=== PATIENT | female | born 1935 | race Caucasian/White ===

== ENCOUNTER 2020-06-25 11:31 | Inpatient (IN) | payer OTHER, MEDICARE ==
[~2020-06-25] VITALS: Ht 165.1 cm; Wt 80.8 kg
[~2020-06-25 11:31] MED LIST: ACTOS 45 MG45 M1 PO; ALBUTEROL INHAL17 GM IH; ALTACE10 M1 PO; AMARYL2 MG PO; BACTRIM DS TAB1 EACH PO; LIPITOR20 MG PO; MELOXICAM7.5 MG PO; MUPIROCIN22 GM; OXYBUTYNIN 5 MG5 M1 PO; SIMVASTATIN40 MG PO; ZOLOFT25 MG PO
[2020-06-25] MEDS ORDERED: ASA81BEC PO (15:35)
[2020-06-25] MEDS ORDERED: ACETAMINOPHEN650 M5 PO (15:35)
[2020-06-25] MEDS ORDERED: FAST RELIEF LAX10 MG RECTAL (15:36)
[2020-06-25] MEDS ORDERED: BUSPIRONE HCL10 MG PO (15:36)
[2020-06-25] MEDS ORDERED: CHILDREN'S ZYRT10 M1 PO (15:37)
[2020-06-25] MEDS ORDERED: CULTURELLE1 EAC1 PO (15:37)
[2020-06-25] MEDS ORDERED: DEPAKOTE SPRIN125 MG PO (15:39)
[2020-06-25] MEDS ORDERED: B-12 COMPL1000 MCG/1 INJECTION (15:39)
[2020-06-25] MEDS ORDERED: DONEPEZIL HCL5 M1 PO (15:42)
[2020-06-25] MEDS ORDERED: NORCO 10-325 T1 EACH PO ×2 (15:43)
[2020-06-25] MEDS ORDERED: LEVO-T75 MCG PO (15:44)
[2020-06-25] MEDS ORDERED: LOPERAMIDE2 MG PO (15:44)
[2020-06-25] MEDS ORDERED: LORAZEPAM 0.50.5 MG PO (15:45)
[2020-06-25] MEDS ORDERED: SENNA PLUS TAB1 EACH PO (15:49)
[2020-06-25] MEDS ORDERED: MILK OF MA2400 MG/11 PO (15:49)
[2020-06-25] MEDS ORDERED: OLANZAPINE2.5 MG PO (15:49)
[2020-06-25] MEDS ORDERED: ZOLOFT50 M1 PO (15:50)
[2020-06-25] MEDS ORDERED: IMITREX 25 MG T25 M1 PO (15:51)
[2020-06-25 22:47] VITALS: BP 165/76
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
--- NOTE | 2020-06-26 03:01 | NUR ---
PATIENT HAS BEEN UP PACING THE HALLS. SHE IS IRRITABLE AND AGITATED. UNDIRECTABLE. PATIENT YELLING AT STAFF FROM [facility]. ENTERING PATIENT ROOMS. TRYING TO OPEN CLOSED DOORS. CALLING STAFF NAMES AND BELITTLING OTHERS. DR BANG NOTIFIED. ORDERS GIVEN FOR HALDOL 5MG PO OR IM ONE TIME. PATIENT REFUSED PO. VERY BELLIGERANT. FLIGHT OF IDEAS. HATEFUL. SECURITY CALLED AND HALDOL 5MG IM GIVEN IN LEFT DELTOID. PATIENT UP AND PACING. ANGRY THAT ROOM DOORS ARE SHUT AND LOCKED. PATIENT THREW HER KLEENEX BOX DOWN THE HALLWAY AND YELLING. PATIENT TOOK AND THREW HER SHOES AT STAFF MEMBER IN ANOTHER ROOM. SHOES PLACED IN LOCKER. CONTINUING TO MONITOR.
[2020-06-26 09:13] VITALS: BP 119/68
--- NOTE | 2020-06-26 12:49 | NUR ---
ASSUMED CARE AT 0700 THIS MORNING. PT. LYING IN BED, AWAKE. SHE CAME ONTO THE UNIT FOR MEALS. SHE IS NOT EATING WELL (ABOUT 25 TO 35%). SHE WENT TO HER ROOM AND LAYED DOWN BETWEEN MEALS, NOT ATTENDING RT GROUP. SHE SITS QUIETLY WITHOUT TALKING MUCH OF THE TIME. SHE DOES NOT ALWAYS ANSWER QUESTIONS WHEN ASKED OF HER. SHE DID TAKE HER MORNING MEDICATIONS WITHOUT PROBLEMS WITH SOME ENCOURAGEMENT. HER MOOD IS NEUTRAL WITH BLAND MOOD.
[2020-06-26 19:55] VITALS: BP 140/81
--- NOTE | 2020-06-27 00:18 | NUR ---
PATIENT WAS OUT IN THE DINING ROOM ALL EVENING. SHE HAS BEEN CALM AND PLEASANT. SHE REMAINS A/0X1. SHE WAS LOOKING FOR 2 OF HER CHILDREN TONIGHT. SHE HAS DISORGANIZED THINKING AND HER CONVERSATIONS ARE PRESENTED THIS WAY TOO. PATIENT TOOK HER HS MEDS WHOLE WITH WATER AND SOME WERE PLACED IN ICECREAM BECAUSE SHE WAS TAKING SO MANY AND GOT TIRED OF SWALLOWING THEM. PATIENT WALKS WITH A STEADY GAIT. SHE DENIES PAIN, SI/HI. PATIENT HAS BEEN COOPERATIVE AND EASILY REDIRECTED. PATIENT SLEEPING AT THIS TIME. BED IN LOW POSITION. ROUTINE ROUNDS TO ASSESS SAFETY AND STATUS OF PATIENT.
[2020-06-27 08:49] VITALS: BP 120/35
[2020-06-27 10:30] LABS: CALCIUM 9.1 mg/dL (8.5-10.1); CREATININE 1.3 mg/dL (0.6-1.0); POTASSIUM 3.9 mmol/L (3.5-5.1)
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
[2020-06-27 19:24] VITALS: BP 139/70
[2020-06-28 01:06] LABS: GLYCOHEMOGLOBIN (HGB A1C) 7.1 % (4.8-5.6)
--- NOTE | 2020-06-28 03:51 | NUR ---
Assumed care of patient this pm shift. Patient is irritable and confused. Denies pain. Denies hi/si. Exit seeking. Takes medications crushed in pudding. Ambulates without assistance. Redirectable. Assessment shows no signs of acute distress. Alert and oriented to self. Continent of bowel and bladder. We will continue to monitor per hospital policy.
[2020-06-28 07:24] VITALS: BP 109/56
--- NOTE | 2020-06-28 16:16 | NUR ---
Faxed updated to [facility]
[2020-06-28 19:16] VITALS: BP 130/65
--- NOTE | 2020-06-28 19:52 | NUR ---
Assumed patient care at 0700. patient was sitting in the day room. upon assessment patient was calm and co-operative. Patient was alert and oriented to self. Patient took her medication crushed. she ate all meals. patient denies SI/HI. patient vital signs were stable. will continue to monitor patient
--- NOTE | 2020-06-29 05:00 | NUR ---
Assumed care of pt @ 1900. Pt calm et cooperative this shift. Took medications crushed in pudding without difficulty. Ambulates with assistance of gerichair. VSWNL. Health assessment with no abnormalities noted at present time. Denies SI/HI/AVH at present time. Socialized with peers in dayroom until HS. Currently resting in gerichair in dayroom with eyes open. Pt has not slept tonight. Will continue to monitor per unit protocol.
[2020-06-29 07:35] LABS: HEMATOCRIT 39.4 % (37.0-47.0); HEMOGLOBIN 12.8 gm/dL (12.0-15.0); MCH 31.3 pg (26.0-34.0); MCHC 32.4 g/dL (28.0-37.0); MCV 96.5 fL (80.0-100.0); RBC 4.08 mil/uL (4.20-5.00); RDW 14.1 % (10.5-14.5); WBC 8.1 thou/uL (4.0-11.0)
[2020-06-29 07:52] LABS: ALBUMIN 3.4 g/dL (3.4-5.0); CALCIUM 9.4 mg/dL (8.5-10.1); CREATININE 1.1 mg/dL (0.6-1.0); POTASSIUM 3.8 mmol/L (3.5-5.1); TOTAL BILIRUBIN 0.4 mg/dL (0.2-1.0); TOTAL PROTEIN 7.5 g/dL (6.4-8.2)
[2020-06-29 09:21] VITALS: BP 125/56
--- NOTE | 2020-06-29 12:10 | NUR ---
Alert to name only. Appropriate speech. Denies SI/HI. No speech/behavior suggestive of SI/HI. Breath sounds clear. Reg HR auscultated. Color pink with brisk capillary refill and palpable peripheral pulses. Brief dry. Active bowel sounds over soft, rounded abdomen. Able to stand briefly and then sat down. Sitting in gerichair all morning in dining room, sleeping at times. Lap corazon fastened in front. Currently eating lunch independently without s/o distress.
--- NOTE | 2020-06-29 14:38 | NUR ---
SW contacted [facility] and Spoke with GIL Mora. DANIEL gave update on the Pt and scheduled d/c for 07/02/20 @ 1000am. [facility].
[2020-06-29 19:23] VITALS: BP 126/63
[2020-06-29 20:40] VITALS: BP 126/63
--- NOTE | 2020-06-30 05:41 | NUR ---
Assumed care for pt @ 1900. Pt in dining room sitting in gerichair most of shift. Pt is A&O x 1 to self. Pleasantly confused. Denies pain. Deneis SI/HI. Takes medications crushed in applesauce w/ thin liquids. Slept in gerichair 11 hours. No s/s of acute distress noted. Incontient of bowel/bladder x 1. Pericare completed and assisted with toileting. Will continue to monitor for any changes and for safety per hospital protocol.
[2020-06-30 08:13] VITALS: BP 141/58
[2020-06-30 09:10] VITALS: BP 141/58
--- NOTE | 2020-06-30 10:30 | NUR ---
1030 RESUMMED CARE FROM OVERNIGHT SHIFT THIS AM, PATIENT INDAY ROOM IN EFRAIN CHAIR QUIET. PATIENT IS NOT ABLE TO TELL ME ABOUT SI/HI/AH/VH AT PRESENT DUE TO COGNITVE DISORDER. PATIENT ABDOMEN SOFT ROUND BOWEL SOUNDS PRESENT LUNGS CLEAR. PATIENT IS ORIENTED TO SELF ONLY PATIENT IS NON VERBAL CALM COOPERATIVE. WILL CONTINUE TO MONITOR PATIENT FOR SAFETY AND BEHAVIORS.
[2020-06-30 19:35] VITALS: BP 143/68
--- NOTE | 2020-07-01 05:15 | NUR ---
Assumed care of pt @ 1900. Pt calm et cooperative this shift. Took medications crushed in pudding without difficulty. Ambulates with assistance of gerichair. VSWNL. Health assessment with no abnormalities noted at present time. Unable to assess SI/HI/AVH due to cognitive deficit but pt does not demonstrate any signs or symptoms of acute emotional distress at present time. Socialized with peers in dayroom until HS. Currently resting in gerichair in dayroom with eyes closed. will continue to monitor per unit protocol.
[2020-07-01 07:00] VITALS: BP 117/65
[2020-07-01 09:17] VITALS: BP 117/65
--- NOTE | 2020-07-01 10:43 | NUR ---
1035 RESUMMED CARE FROM OVERNIGHT SHIFT THIS AM, PATIENT IN DAYROOM IN EFRAIN CHAIR QUIET. PATIENT DID NOT SLEEP BUT 1 HOUR LAST NIGHT PATIENT CALM CONFUSED ORIENTED TO SELF ONLY. PATIENTS ABDOMEN SOFT ROUND BOWEL SOUNDS PRESENT LUNGS CLEAR. PATIENT UNABLE TO TELL ME ABOUT SI/HI/AH/VH DUE TO COGNITIVE DO WILL CONTINUE TO MONITOR PATIENT FOR SAFETY AND BEHAVIORS.
--- NOTE | 2020-07-01 14:53 | NUR ---
SW faxed updates to [facility]. SW team will continue to monitor.
[2020-07-01 19:20] VITALS: BP 102/68
--- NOTE | 2020-07-02 02:29 | NUR ---
PATIENT SAT UP IN EFRAIN CHAIR IN DINING ROOM THIS EVENING WITH LAP MAMADOU COMFORTABLY SECURED AND FASTENED IN FRONT SIDE. PATIENT IS A/0X1. SHE HAS BEEN CALM AND COOPERATIVE. SHE HAS DISORGANIZED CONVERSATIONS. SHE DID TAKE HER MEDS CRUSHED IN PUDDING AND FED HERSELF ICECREAM FOR HS SNACK. PATIENT NOT STANDING WELL SHE DID WHEN SHE FIRST CAME. PATIENT WAS ASSISTED TO BED WITH ASSIST X 2. PATIENT DENIES PAIN. NO SIGNS OF SI/HI NOTED. PATIENT IS PLEASANTLY CONFUSED. SHE DOES LOOK FOR HER CHILDREN AND ASK ABOUT HER AT TIMES. VSS. INCONTINENCE CARES DONE PRN THRU NIGHT. PATIENT RESTING IN BED WITH EYES CLOSED. ROUTINE ROUNDING TO ASSESS SAFETY AND STATUS OF PATIENT. NO BEHAVIORS NOTED. PATIENT TO D/C TO [facility] THIS MORNING AT 10 AM. BED IN LOW POSITION AND BED ALARM ON FOR SAFETY. CONTINUING TO MONITOR.
[2020-07-02 07:52] VITALS: BP 124/55
[2020-07-02] MEDS ORDERED: CEFUROXIME250 MG PO (09:54)
[2020-07-02] MEDS ORDERED: DEPAKOTE SPRIN125 MG PO ×2 (09:55)
[2020-07-02] MEDS ORDERED: OLANZAPINE2.5 MG PO (09:56)
[2020-07-02] MEDS ORDERED: OLANZAPINE ODT5 MG PO (09:56)
[2020-07-02] MEDS ORDERED: PEPCID20 MG PO (09:58)
[2020-07-02] MEDS ORDERED: VITAMIN D21250 MC1 PO (09:59)
--- NOTE | 2020-07-02 10:54 | NUR ---
REPORT CALLED TO SPENCER AT [facility] AT APPROX 0845 THIS AM-DAUGHTER JOYCE EDWARDS CONTACTED VIA PHONE AND DISCHARGE INSTRUCTIONS,MEDICATIONS REVIEWED-DAUGHTER DID HAVE MULTIPLE QUESTIONS STATING SHE WAS NOT AWARE OF DC FOR TODAY. PT DISCHARGED VIA WC ACCOMPNIED BY [employer] STAFF-PERSONAL BELONGINGS SENT WITH PATIENT. UP IN MOOD AT TIME OF DC-SITTING QUIETLY IN WHEELCHAIR DENIES PAIN/DISCOMFORT-ALERT AND ORIENTED TO PERSON/PLACE-STATES "HAPPY TO BE GOING"
== END 2020-07-02 11:03 | DRG 884 ==
LOC: SBH
PROVIDERS: Hospitalist; ADMIT Psychiatry & Neurology Psychiatry; ATTEND Psychiatry & Neurology Psychiatry
DX: F01.51 Vascular dementia, unspecified severity, with behavioral disturbance (principal); N39.0 Urinary tract infection, site not specified; F41.9 Anxiety disorder, unspecified; F43.10 Post-traumatic stress disorder, unspecified; E11.9 Type 2 diabetes mellitus without complications; E03.9 Hypothyroidism, unspecified; K21.9 Gastro-esophageal reflux disease without esophagitis; I10 Essential (primary) hypertension; F31.9 Bipolar disorder, unspecified; Z86.16 Personal history of COVID-19; Z66 Do not resuscitate; Z88.8 Allergy status to other drugs, medicaments and biological substances
CPT/HCPCS: 10880

== ENCOUNTER 2020-06-25 14:37 | Emergency (ER) | payer OTHER, MEDICARE ==
[~2020-06-25] VITALS: Ht 167.6 cm; Wt 79.4 kg
[2020-06-25 15:28] LABS: ABSOLUTE NEUTROPHILS 4.1 thou/uL (1.4-8.2); BASOPHILS 0.4 % (0.0-2.0); EOSINOPHILS 2.7 % (0.0-3.0); HEMATOCRIT 36.8 % (37.0-47.0); HEMOGLOBIN 12.2 gm/dL (12.0-15.0); LYMPHOCYTES 23.7 % (24.0-44.0); MCHC 33.2 g/dL (28.0-37.0); MCV 96.6 fL (80.0-100.0); MONOCYTES 6.1 % (1.0-8.0); PLATELET COUNT 293 thou/uL (150-400); POLYS 67.1 % (36.0-66.0); RBC 3.81 mil/uL (4.20-5.00); RDW 14.3 % (10.5-14.5); WBC 6.1 thou/uL (4.0-11.0)
[2020-06-25] MEDS ORDERED: ASA81BEC PO (15:35)
[2020-06-25] MEDS ORDERED: ACETAMINOPHEN650 M5 PO (15:35)
[2020-06-25] MEDS ORDERED: BUSPIRONE HCL10 MG PO (15:36)
[2020-06-25] MEDS ORDERED: FAST RELIEF LAX10 MG RECTAL (15:36)
[2020-06-25] MEDS ORDERED: CULTURELLE1 EAC1 PO (15:37)
[2020-06-25] MEDS ORDERED: CHILDREN'S ZYRT10 M1 PO (15:37)
[2020-06-25 15:39] LABS: ANION GAP 9 mmol/L (7-16); BUN 17 mg/dL (7-18); CALCIUM 9.3 mg/dL (8.5-10.1); CHLORIDE 105 mmol/L (98-107); CO2 27 mmol/L (21-32); CREATININE 1.1 mg/dL (0.6-1.0); GLUCOSE 223 mg/dL (74-106); SODIUM 141 mmol/L (136-145)
[2020-06-25] MEDS ORDERED: DEPAKOTE SPRIN125 MG PO (15:39)
[2020-06-25] MEDS ORDERED: B-12 COMPL1000 MCG/1 INJECTION (15:39)
[2020-06-25] MEDS ORDERED: DONEPEZIL HCL5 M1 PO (15:42)
[2020-06-25] MEDS ORDERED: NORCO 10-325 T1 EACH PO ×2 (15:43)
[2020-06-25] MEDS ORDERED: LEVO-T75 MCG PO (15:44)
[2020-06-25] MEDS ORDERED: LOPERAMIDE2 MG PO (15:44)
[2020-06-25] MEDS ORDERED: LORAZEPAM 0.50.5 MG PO (15:45)
[2020-06-25] MEDS ORDERED: SENNA PLUS TAB1 EACH PO (15:49)
[2020-06-25] MEDS ORDERED: MILK OF MA2400 MG/11 PO (15:49)
[2020-06-25] MEDS ORDERED: OLANZAPINE2.5 MG PO (15:49)
[2020-06-25] MEDS ORDERED: ZOLOFT50 M1 PO (15:50)
[2020-06-25 15:51] LABS: DIRECT BILIRUBIN < 0.1 mg/dL (<0.1-0.2); SALICYLATE < 2.8 mg/dL (2.8-20.0); SGOT 15 U/L (15-37); SGPT 15 U/L (14-59); TOTAL BILIRUBIN 0.5 mg/dL (0.2-1.0); TOTAL PROTEIN 6.8 g/dL (6.4-8.2)
[2020-06-25] MEDS ORDERED: IMITREX 25 MG T25 M1 PO (15:51)
[2020-06-25 16:04] LABS: AMP/METHAMP Negative (Negative); BARBITURATES Negative (Negative); BENZODIAZEPINES Negative (Negative); COCAINE Negative (Negative); METHADONE Negative (Negative); OPIATES POSITIVE (Negative); PCP Negative (Negative)
[2020-06-25 17:04] LABS: URINE BILIRUBIN NEGATIVE (Negative); URINE BLOOD TRACE (Negative); URINE CLARITY CLEAR; URINE COLOR YELLOW; URINE GLUCOSE-RANDOM* NEGATIVE (Negative); URINE KETONES NEGATIVE (Negative); URINE PROTEIN (DIPSTICK) NEGATIVE (Negative); URINE SPECIFIC GRAVITY 1.025 (1.005-1.035); URINE UROBILINOGEN 0.2 E.U./dl (0.2-1.0)
[2020-06-25 17:17] LABS: URINE LEUKOCYTES-REFLEX 2+ (Negative); URINE NITRITE-REFLEX POSITIVE (Negative)
[2020-06-25 17:27] LABS: SQUAMOUS 0-3 Few /LPF (0-3); URINE WBC-REFLEX >25 Many /HPF (0-5)
[2020-06-25 17:28] LABS: BACTERIA-REFLEX >30 Many /HPF (None Seen); CASTS None Seen /LPF (None Seen); CRYSTALS None Seen /LPF (None Seen); URINE RBC 0-2 Rare /HPF (0-2)
[2020-06-25 22:07] VITALS: BP 138/97
== END 2020-06-25 22:07 | disposition still patient (30) ==
LOC: ER 14:37
PROVIDERS: Nurse Practitioner
DX: U07.1 COVID-19 (principal); F99 Mental disorder, not otherwise specified; E11.9 Type 2 diabetes mellitus without complications; E78.5 Hyperlipidemia, unspecified; Z79.899 Other long term (current) drug therapy; Z79.82 Long term (current) use of aspirin; Z88.8 Allergy status to other drugs, medicaments and biological substances

== ENCOUNTER 2020-10-08 16:07 | Inpatient (IN) | payer OTHER, MEDICARE ==
[~2020-10-08] VITALS: Ht 165.1 cm; Wt 79.1 kg
[~2020-10-08 16:07] MED LIST changes: +ACETAMINOPHEN650 M5 PO; +ASA81BEC PO; +B-12 COMPL1000 MCG/1 INJECTION; +BUSPIRONE HCL10 MG PO; +CEFUROXIME250 MG PO; +CHILDREN'S ZYRT10 M1 PO; +CULTURELLE1 EAC1 PO; +DEPAKOTE SPRIN125 MG PO; +DONEPEZIL HCL5 M1 PO; +FAST RELIEF LAX10 MG RECTAL; +IMITREX 25 MG T25 M1 PO; +LEVO-T75 MCG PO; +LOPERAMIDE2 MG PO; +LORAZEPAM 0.50.5 MG PO; +MILK OF MA2400 MG/11 PO; +NORCO 10-325 T1 EACH PO; +OLANZAPINE ODT5 MG PO; +OLANZAPINE2.5 MG PO; +PEPCID20 MG PO; +SENNA PLUS TAB1 EACH PO; +VITAMIN D21250 MC1 PO; +ZOLOFT50 M1 PO
[2020-10-08 20:00] VITALS: BP 140/84
--- NOTE | 2020-10-08 23:11 | NUR ---
PATIENT ARRIVED TO [facility] UNIT FROM OUR ED AFTER A NEGATIVE COVID PCR DONE. PT TREATED FOR UTI WITH ROCEPHIN PER REPORT NURSE. PATIENT CAME BY STRETCHER AT 1945 AND WAS ABLE TO STAND AND WALK TO HER BED FROM THE DOOR WAY WITH STANDBY ASSIST. PATIENT ADMITTED FROM [facility] WHERE SHE WAS AGGRESSIVE TOWARDS OTHER RESIDENTS AND WAS DELUSIONAL, YELLING, AND AGITATED FOR LAST 4 DAYS. PATIENT HAS MEDICARE INSURANCE WITH [employer]. PATIENT IS A/0X1. SHE IS IMPULSIVE AND ANXIOUS WHEN SHE FIRST ARRIVED. SHE DID NOT WANT TO SIT FOR VITALS AND WANTED TO PACE THE HALLS AND DINING ROOM. SHE IMMEDIATELY WENT TO A TABLE WHERE OTHER WOMEN WERE PLAYING CARDS AND SHE BEGAN TAKING CARDS AND TRYING TO FOLD THEM AND REMOVE THEM FROM THE TABLE. PT WAS REDIRECTED TO ANOTHER AREA. SHE FINALLY SETTLED IN A SEAT FOR AWHILE. PATIENT'S VITALS WERE 142/117 AND RECHECKED WAS 140/84 MANUALLY. P71,T 97.6, R16, O2%ON RA 100. HOSPITALIST, SAMUEL STOREY NP WAS NOTIFIED BY PHONE. ORDERS WERE OBTAINED AND PUT IN BY DR KONG. PATIENT HAS MED HISTORY OF THE FOLLOWING: CARDIOMEGALY, DM2, HYPOTHYROID,GERD HTN, OA, VASCULAR DEMENTIA. A MENTAL HISTORY OF BIPOLAR,PTSD,AND MDD. PATIENT IS A DNR AND CONSENT FOR TREATMENT RECEIVED BY PATIENT'S DPOA/DTR JOYCE EDWARDS [phone]. SHE STATES TO LEAVE MESSAGE FOR HER IF SHE DOESN'T ANSWER AND SHE WILL CALL BACK WHEN SHE CAN. SHE WORKS LATE AFTERNOONS TO EARLY EVENINGS. PATIENT WOULD NOT SIT STILL FOR COMPLETE ASSESSMENT SO WAS LIMITED. HER LUNGS ARE CTA BILATERALLY, HEART REGULAR, ABDOMEN SOFT,NONTENDER, POSITIVE BS X 4 QUADS. PATIENT APPEARS INCONTINENT AND IS WEARING BRIEFS. NO GLASSES OR HEARING AIDS NOTED. HAS A TOENAIL ON LEFT LITTLE TOE THAT APPEARS TO BE COMING LOSE WITH OLD BLOOD UNDER IT. SOME CAKED ON DIRT ON BOTTOM OF FOOT ALSO. PATIENT HAS A HISTORY OF CHRONIC BACK PAIN AND WAS ON HYDROCODONE FOR MANY YEARS. THIS WAS STOPPED WHEN SHE WENT TO [facility] PER DAUGHTER. PATIENT ALSO HAD BACK SURGERY YEARS AGO. DAUGHTER STATES THAT PATIENT ACTS OUT MORE WHEN HER BACK IS HURTING AND NEED TO ASSESS THIS SO A PRN CAN BE GIVEN FOR PAIN. TYLENOL 650MG PO GIVEN TONIGHT FOR COMFORT WITH HS MEDS. PATIENT IS RECLINING IN EFRAIN CHAIR IN DINING ROOM AND IS QUIET AND RESTING. PATIENT IS NOT A FALL RISK. CHAIR IS LOCKED. CONTINUING TO MONITOR.
[2020-10-09 05:34] LABS: ABSOLUTE NEUTROPHILS 5.4 thou/uL (1.4-8.2); BASOPHILS 0.5 % (0.0-2.0); EOSINOPHILS 2.8 % (0.0-3.0); HEMATOCRIT 36.8 % (37.0-47.0); HEMOGLOBIN 12.2 gm/dL (12.0-15.0); LYMPHOCYTES 28.7 % (24.0-44.0); MCH 32.8 pg (26.0-34.0); MCHC 33.1 g/dL (28.0-37.0); MCV 99.2 fL (80.0-100.0); MONOCYTES 7.6 % (1.0-8.0); PLATELET COUNT 194 thou/uL (150-400); POLYS 60.4 % (36.0-66.0); RBC 3.71 mil/uL (4.20-5.00); RDW 13.7 % (10.5-14.5); WBC 8.9 thou/uL (4.0-11.0)
[2020-10-09 05:53] LABS: CALCIUM 8.7 mg/dL (8.5-10.1); POTASSIUM 3.8 mmol/L (3.5-5.1)
[2020-10-09 08:44] VITALS: BP 135/86
--- NOTE | 2020-10-09 16:29 | NUR ---
0700 ASSUMED CARE OF PATIENT, PATIENT IN EFRAIN CHAIR AT THAT TIME. PATIENT RESTING WITH EYES CLOSED OFF AN ON. PATIENT NOT ANSWERING QUESTIONS FOR ME, PATIENT STARES AND IGNORES PHYSICIAN ASSISTANT SURGERY. PHYSICIAN ASSISTANT SURGERY ASKS PATIENT HOW SHE TAKES MEDICATION AND PATIENT STARES AT PHYSICIAN ASSISTANT SURGERY WITH NO RESPONSE. PHYSICIAN ASSISTANT SURGERY ASKS PATIENT AGAIN AND PATIENT RESPONDS WITH "I AM THINKING HOLD UP". NEVER RECIEVED RESPONSE. MEDICATION GIVEN CRUSHED IN PUDDING. QUIET AND CALM, A& O X1. NO C/O PAIN. WILL CONTINUE TO OBSERVE
[2020-10-09 19:00] VITALS: BP 100/61
--- NOTE | 2020-10-10 00:50 | NUR ---
ASSESSMENT: PT WAS SITTING IN EFRAIN CHAIR, QUIETLY AND WATCHING TELEVISION. DID TAKE MEDS WITHOUT DIFFICULTY. VSS, AFEBRILE. UP WITH SBA TO PIVOT FROM CHAIR TO BED. INCONTINENT. UA PENDING. DENIES PAIN. WILL CONTINUE TO MONITOR.
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
--- NOTE | 2020-10-10 13:33 | NUR ---
PATIENT HAS BEEN UP, AND OUT ON THE UNIT, A&O X1, FORGETFUL, AND VERY CONFUSED. PATIENT IS QUIET, CALM COOPERATIVE WITH CARE. PATIENT TOOK MORNING MEDICATION CRUSHED IN PUDDING. APPETITE IS POOR, EATS LESS THAN 25% MEALS, ENSURE OFFERED FOR SUPPER, SHE ONLY TOOK A FEW SIPS, STARTED SPITTING IT OUT. PATIENT REQUIRES ASSIST OF STAFF TO COMPLETE ADL, INCLUDING FEEDING. PATIENT CHOOSE NOT TO RESPOND TO ASSESSMENT QUESTIONS, MAY BE DUE TO COGNITIVE IMPAITEMENT. AFFECT IS FLAT/BLUNTED, MOOD IS CALM, QUIET. NO AGITATION OR AGGRESSIVE BEHAVIOR NOTED AT THIS TIME, WILL CONTINUE TO ENCOURAGE PO INTAKE, AND MONITOR FOR SAFETY.
--- NOTE | 2020-10-10 18:12 | NUR ---
SW completed treatment plan and psychosocial assessment. SW team will remain available.
[2020-10-10 19:22] VITALS: BP 130/65
[2020-10-11 01:45] LABS: URINE BILIRUBIN NEGATIVE (Negative); URINE BLOOD 1+ (Negative); URINE CLARITY CLOUDY; URINE COLOR YELLOW; URINE GLUCOSE-RANDOM* NEGATIVE (Negative); URINE KETONES 1+ (Negative); URINE NITRITE-REFLEX NEGATIVE (Negative); URINE PROTEIN (DIPSTICK) NEGATIVE (Negative); URINE SPECIFIC GRAVITY 1.025 (1.005-1.035); URINE UROBILINOGEN 0.2 E.U./dl (0.2-1.0)
[2020-10-11 01:48] LABS: URINE LEUKOCYTES-REFLEX 2+ (Negative)
[2020-10-11 02:07] LABS: BACTERIA-REFLEX 1-9 Few /HPF (None Seen); CASTS None Seen /LPF (None Seen); CRYSTALS None Seen /LPF (None Seen); MUCUS >6 Heavy strn/LPF (None Seen); SQUAMOUS 4-10 Moderate /LPF (0-3); URINE RBC >20 Many /HPF (0-2)
--- NOTE | 2020-10-11 02:55 | NUR ---
Alert and orientated to name only. Calm and cooperative, took meds in pudding. Confused speech, minimal verbalizations. No speech/behavior suggestive of SI/HI. Breath sounds clear. Reg HR auscultated. Color pink with brisk capillary refill and palpable peripheral pulses. Incontinent of yellow urine. Straight cath done for yellow cloudy urine, sent for UA and C&S. Active bowel sounds over soft, rounded abdomen. Soft, brown stool per brief. Currently sleeping without s/o distress.
[2020-10-11 09:30] VITALS: BP 132/72
[2020-10-11 12:51] VITALS: BP 132/72
--- NOTE | 2020-10-11 13:18 | NUR ---
Assumed pt care at 0700. pt is oriented to self. Assessments completed,vss. calm and co-operative with care. pt is forgetful. denies si/hi. there is no c/o pain at this time. Ambulates with a steady gait. Took meds crushed with yogurt, no difficulty noted. pt sometimes wanders the unit. At this time pt is in the day room watching TV. Will continue to monitor pt.
--- NOTE | 2020-10-11 13:19 | NUR ---
DANIEL contacted [facility] and spoke to Mercedes who gave the fax number of [phone]. [facility]'s number is [phone]. DANIEL faxed updates. DANIEL team will continue to follow pt during her stay on this unit.
[2020-10-11 20:00] VITALS: BP 131/59
--- NOTE | 2020-10-12 00:09 | NUR ---
Alert and orientated to name only. Some confused speech, other times short, coherent statements. Denies SI/HI. Ambulatory per report with regular steady gait. Compliant with meds, took crushed in pudding. Breath sounds clear. Reg HR auscultated. Color pink with brisk capillary refill and palpable peripheral pulses. Incontinent X 2 large amts yellow urine per brief with small, soft brown stool. Active bowel sounds over soft, rounded abdomen. Excoriated, erythemic area under breasts, more prominent on L. JANENE Echols notified, cleaned and nystatin powder applied per order. Pt. Currently sleeping without s/o distress.
[2020-10-12 09:56] VITALS: BP 124/59
[2020-10-12 15:25] VITALS: BP 124/59
--- NOTE | 2020-10-12 15:35 | NUR ---
Assumed pt care at 0700. pt was alert and oriented to self. ASSESSMENT COMPLETED,VSS. PT TOOK MEDS CRUSHED IN PUDDING. PT AMBULATES. dENIES SI/HI. AT THIS TIME THERE IS NO C/O OF PAIN. PT WAS INCONTINENT ONCE. PT HAD A BOWEL MOVEMENT TWICE. NO SIGN OF ACUTE DISTRESS UP ASSESSMENTS. aT THIS TIME PT IS SLEEPING ON A Christy CHAIR, IN THE DAY ROOM. WILL CONTINUE TO MONITOR PT.
[2020-10-12 19:28] VITALS: BP 144/77
--- NOTE | 2020-10-12 22:44 | NUR ---
Alert to name only, confused speech, talkative this pm. Denies SI/HI, no speech/behavior suggestive of SI/HI. Ambulating t/o unit with regular, steady gait. Breath sounds clear. Reg HR auscultated. Color pink with brisk capillary refill and palpable peripheral pulses. No edema noted. Incontinent of large amt yellow urine per brief. Active bowel sounds over soft, rounded abdomen. Rash under breasts almost resolved, powder appears to be recently applied. Ate container of yogurt and drank 300 cc H2O with assistance. Currently lying quietly in bed without s/o distress.
[2020-10-13 08:21] VITALS: BP 141/71
[2020-10-13 16:44] VITALS: BP 141/71
--- NOTE | 2020-10-13 16:51 | NUR ---
Assumed pt care at 0700. pt was oriented to self. took meds crushed, no difficulty noted. pt ambulates with a steady. calm and co-operative with care. PT IS FORGETFUL. no sign of acute distress noted. No sign of of si/hi. pt slept most apart of the day. pt was straight cath to get a UA sample PER DR ARTUR mendes. UA collected and sent to lab. At this time pt is eating dinner. will continue to monitor.
[2020-10-13 17:43] LABS: URINE BILIRUBIN NEGATIVE (Negative); URINE BLOOD NEGATIVE (Negative); URINE CLARITY CLEAR; URINE COLOR YELLOW; URINE GLUCOSE-RANDOM* NEGATIVE (Negative); URINE KETONES 1+ (Negative); URINE LEUKOCYTES-REFLEX NEGATIVE (Negative); URINE NITRITE-REFLEX NEGATIVE (Negative); URINE PROTEIN (DIPSTICK) NEGATIVE (Negative); URINE SPECIFIC GRAVITY 1.025 (1.005-1.035)
[2020-10-13 19:25] VITALS: BP 147/69
--- NOTE | 2020-10-13 23:08 | NUR ---
PT WANDERING IN DAY ROOM AND JOHNSON AND ROOMS. PT BLUNTED AFFECT, GOOD EYE CONTACT. FOLLOWS DIRECTIONS. COMPLIANT WITH MEDS AND SNACKS. PT RESISTIVE TO SIT ON TOILET SO RISER PLACED. STEADY GAIT. INCONTINENT AT TIMES. BED ALARM ON.
[2020-10-14 04:52] LABS: ABSOLUTE NEUTROPHILS 5.4 thou/uL (1.4-8.2); BASOPHILS 0.6 % (0.0-2.0); EOSINOPHILS 2.5 % (0.0-3.0); HEMATOCRIT 35.8 % (37.0-47.0); LYMPHOCYTES 20.5 % (24.0-44.0); MCH 33.2 pg (26.0-34.0); MCHC 33.5 g/dL (28.0-37.0); MCV 99.3 fL (80.0-100.0); MONOCYTES 8.9 % (1.0-8.0); PLATELET COUNT 201 thou/uL (150-400); POLYS 67.5 % (36.0-66.0); RDW 13.5 % (10.5-14.5); WBC 8.1 thou/uL (4.0-11.0)
[2020-10-14 05:10] LABS: CREATININE 0.9 mg/dL (0.6-1.0); MAGNESIUM 1.8 mg/dL (1.8-2.4); PHOSPHORUS 3.7 mg/dL (2.6-4.7); POTASSIUM 4.4 mmol/L (3.5-5.1); TOTAL BILIRUBIN 0.3 mg/dL (0.2-1.0); TOTAL PROTEIN 6.7 g/dL (6.4-8.2)
[2020-10-14 09:21] VITALS: BP 153/67
[2020-10-14 09:23] VITALS: BP 153/67
--- NOTE | 2020-10-14 09:33 | NUR ---
ASSUMED CARE AT 0700 TODAY. PT. UP FOR BREAKFAST. SHE TOOK HER MORNING MEDICATIONS WITHOUT PROBLEMS NOTED. THEY WERE CRUSHED AND PUT IN PUDDING. SHE TAKES VERY SMALL BITES AND IT TAKES A WHILE TO GET HER MEDICATIONS DOWN HER. SHE ATE BREAKFAST, WAS QUIET BUT PLEASANT. SHE WAS PLACED IN A RECLINING CHAIR AND IS SITTING ON THE UNIT. DURING THE ASSESSMENT DID NOTE THAT SHE HAD SOME TENTING OF THE SKIN GOING ON. INFORMED JEANNETTE FLANAGAN. HE LOOKED AT THE LABS OF THIS WOMAN AND STATED SHE IS A BIT DEHYDRATED AND NEEDS FLUIDS PUSHED ON HER. SHE CONTINUES TO BE VERY CONFUSED. SHE IS A&OX1. SHE DOES AMBULATE ON HER OWN OR SITS IN A RECLINING CHAIR. SHE IS IMPULSIVE. WILL CONTINUE TO MONITOR.
--- NOTE | 2020-10-14 13:44 | NUR ---
RT PROGRESS NOTE- AT THIS TIME SHALINI'S PARTICIATION IN THE [facility]LEU AND RECREATION GROUPS HAS BEEN VERY MINIMAL. SHALINI HAS BEEN ENCOURAGED TO ATTEND GROUPS BUT INSTEAD SHE DO NOT ATTEND. MOST OF THE TIME, SHALINI HAS BEEN ASLEEP IN HER ROOM DURING GROUP TIMES. SHE HAS NOT DISPLAYED ANY BEHAVIORS SO FAR.
--- NOTE | 2020-10-14 14:37 | NUR ---
SW faxed updates to [facility]. SW team will remain available.
[2020-10-14 19:22] VITALS: BP 122/92
[2020-10-14 20:00] VITALS: BP 122/92
--- NOTE | 2020-10-15 02:23 | NUR ---
PATIENT SAT IN DINING ROOM THIS EVENING. SHE IS A/0X1. SHE WAS CALM AND COOPERATIVE. SHE TOOK HER MEDS CRUSHED IN PUDDING. SHE DENIES PAIN. NO SIGN OF SI/HI. SHE TALKS NONSENSICAL. SHE WAS ASSISTED TO BED WITH ASSIST X 2. SHE HAS BEEN SLEEPING SINCE AROUND 2200. SHE IS INCONTINENT AND HAS PRN CHECKS FOR INCONTINENCE. BED IN LOW POSITION AND BED ALARM IS ON. ROUTINE ROUNDING TO ASSESS STATUS AND SAFETY. CONTINUING TO MONITOR
[2020-10-15 05:45] LABS: CALCIUM 8.6 mg/dL (8.5-10.1); CREATININE 0.8 mg/dL (0.6-1.0); POTASSIUM 4.1 mmol/L (3.5-5.1)
[2020-10-15 10:14] VITALS: BP 123/60
[2020-10-15 12:20] VITALS: BP 123/60
--- NOTE | 2020-10-15 12:55 | NUR ---
In tx team it was discussed that pt was ready for d/c. SW contacted [facility] and was told that she needed to speak to Tita Bullard about discharge of pt. DANIEL contacted Tita, no answer, so SW left a msg asking for a return call. SW team will continue to follow pt during her stay on this unit.
--- NOTE | 2020-10-15 14:51 | NUR ---
1450 RESUMMED CARE FROM OVERNIGHT SHIFT THIS AM, PATIENT UP IN DAY ROOM SITTING QUIET. PATIENT IS ALERT ORIENTED TO SELF ONLY PATIENT IS UNABLE TO TELL ME ABOUT SI/HI/AH/VH AT PRESENT. PATIENT HAS COGNITIVE DO PATIENTS ABDOMEN SOFT BOWEL SOUND PRESENT. PATIENTS LUNGS CLEAR I DID A COVID TEST ON PATIENT TODAY. PATIENT CALM COOPERATIVE PATIENT SITS IN GROUPS MINIMAL PARTICIPATION. WILL CONTINUE TO MONITOR PATIENT FOR SAFETY AND BEHAVIORS.
[2020-10-15 19:48] VITALS: BP 127/47
[2020-10-16] MEDS ORDERED: NORVASC5 MG PO (09:18)
[2020-10-16] MEDS ORDERED: DEPAKOTE SPRIN125 MG PO (09:19)
[2020-10-16] MEDS ORDERED: ZYPREXA 5 MG TAB5 M1 PO (09:21)
[2020-10-16] MEDS ORDERED: PROBIOTIC1 EAC1 PO (09:23)
[2020-10-16] MEDS ORDERED: STIMULANT LAXA1 EACH PO (09:24)
[2020-10-16] MEDS ORDERED: SYNTHROID112 MC1 PO (09:24)
[2020-10-16] MEDS ORDERED: NYAMYC15 GM TOP (09:25)
[2020-10-16] MEDS ORDERED: VITAMIN D325 MC1 PO (09:26)
[2020-10-16 09:34] VITALS: BP 134/58
--- NOTE | 2020-10-16 09:40 | NUR ---
Alert and orientated to name only. Confused speech. Calm and cooperative, able to stand and assist with AM cares. Denies SI/HI. Breath sounds clear. Reg HR auscultated. Color pink with brisk capillary refill and palpable peripheral pulses. Brief dry. Active bowel sounds over soft rounded abdomen. Documented BM 10/15. Excoriation and erythema resolved under breasts. Spoke with Falguni LAWRENCE, agrees with transfer. Report called to [facility] to Erika Hollins. Currently sitting in day room without s/o distress.
--- NOTE | 2020-10-16 12:35 | NUR ---
DANIEL D/C note SW faxed to [facility] pt's discharge docs. DANIEL will file this in pt's hospital file. No other needs for SW team to address at this time.
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
== END 2020-10-16 10:00 | DRG 57 ==
LOC: SBH
PROVIDERS: Internal Medicine; Nurse Practitioner; ADMIT Psychiatry & Neurology Psychiatry; ATTEND Psychiatry & Neurology Psychiatry
DX: G30.9 Alzheimer's disease, unspecified (principal); F01.51 Vascular dementia, unspecified severity, with behavioral disturbance; N39.0 Urinary tract infection, site not specified; F02.81 Dementia in other diseases classified elsewhere, unspecified severity, with behavioral disturbance; E87.0 Hyperosmolality and hypernatremia; I67.9 Cerebrovascular disease, unspecified; F29 Unspecified psychosis not due to a substance or known physiological condition; E11.9 Type 2 diabetes mellitus without complications; I10 Essential (primary) hypertension; E03.9 Hypothyroidism, unspecified; M19.90 Unspecified osteoarthritis, unspecified site; Z66 Do not resuscitate; Z20.822 Contact with and (suspected) exposure to COVID-19; Z79.899 Other long term (current) drug therapy; Z88.8 Allergy status to other drugs, medicaments and biological substances
CPT/HCPCS: 10880

== ENCOUNTER 2020-10-08 17:01 | Emergency (ER) | payer OTHER, MEDICARE ==
[~2020-10-08] VITALS: Ht 167.6 cm; Wt 77.1 kg
[2020-10-08 17:44] LABS: ABSOLUTE NEUTROPHILS 7.8 thou/uL (1.4-8.2); BASOPHILS 0.7 % (0.0-2.0); EOSINOPHILS 1.8 % (0.0-3.0); HEMATOCRIT 36.6 % (37.0-47.0); LYMPHOCYTES 18.1 % (24.0-44.0); MCH 32.3 pg (26.0-34.0); MCHC 32.8 g/dL (28.0-37.0); MCV 98.5 fL (80.0-100.0); MONOCYTES 5.5 % (1.0-8.0); PLATELET COUNT 204 thou/uL (150-400); POLYS 73.9 % (36.0-66.0); RBC 3.72 mil/uL (4.20-5.00); RDW 13.9 % (10.5-14.5); WBC 10.5 thou/uL (4.0-11.0)
[2020-10-08 17:51] LABS: CALCIUM 9.1 mg/dL (8.5-10.1); CREATININE 1.1 mg/dL (0.6-1.0); POTASSIUM 4.1 mmol/L (3.5-5.1)
[2020-10-08 18:01] LABS: URINE BILIRUBIN NEGATIVE (Negative); URINE BLOOD TRACE (Negative); URINE CLARITY CLEAR; URINE COLOR YELLOW; URINE GLUCOSE-RANDOM* NEGATIVE (Negative); URINE KETONES NEGATIVE (Negative); URINE PROTEIN (DIPSTICK) NEGATIVE (Negative); URINE SPECIFIC GRAVITY >= 1.030 (1.005-1.035); URINE UROBILINOGEN 0.2 E.U./dl (0.2-1.0)
[2020-10-08 18:11] LABS: URINE LEUKOCYTES-REFLEX 2+ (Negative); URINE NITRITE-REFLEX POSITIVE (Negative)
[2020-10-08 18:24] LABS: BACTERIA-REFLEX >30 Many /HPF (None Seen); CASTS None Seen /LPF (None Seen); CRYSTALS None Seen /LPF (None Seen); SQUAMOUS 0-3 Few /LPF (0-3); URINE RBC 0-2 Rare /HPF (0-2); URINE WBC-REFLEX >25 Many /HPF (0-5)
[2020-10-08 19:13] VITALS: BP 165/74
--- NOTE | 2020-10-09 09:36 | EKG ---
[address] [address] [place] [address] ELECTROCARDIOGRAM REPORT Name: SHALINI GEE Room #: [facility]#: [id number] Admission: 10/08/20 Attend Phys: Discharge: 10/08/20 Date of : 39 Report #: [id number] [facility] ED Test Date: 2020-10-08 Test Time: 18:07:07 Pat Name: SHALINI GEE Department: Room: Gender: F Packing Inspector: REHAN : [id number] Requested By: Renato Christopher Order Number: [id number] MD: Raul Padgett Measurements Intervals [place] Rate: 66 P: 0 NH: 156 QRS: -47 QRSD: 88 T: 12 QT: 403 QTc: 423 Interpretive Statements Sinus rhythm Atrial premature complex Abnormal R-wave progression, early transition Compared to ECG 01/23/2010 08:44:36 No significant changes found Electronically Signed On 10-09-2020 9:36:07 CDT by Raul Padgett [email or web address] <ELECTRONICALLY SIGNED> By: Raul Padgett MD, [facility] 10/09/20 0936 1807 06 Raul Padgett MD, FACC /EPI
== END 2020-10-08 19:36 ==
LOC: ER 17:01
PROVIDERS: Emergency Medicine
DX: G30.9 Alzheimer's disease, unspecified (principal); Z20.822 Contact with and (suspected) exposure to COVID-19; F02.81 Dementia in other diseases classified elsewhere, unspecified severity, with behavioral disturbance; N39.0 Urinary tract infection, site not specified; E03.9 Hypothyroidism, unspecified; K21.9 Gastro-esophageal reflux disease without esophagitis; I10 Essential (primary) hypertension; E11.9 Type 2 diabetes mellitus without complications; Z88.8 Allergy status to other drugs, medicaments and biological substances; Z79.899 Other long term (current) drug therapy; Z79.82 Long term (current) use of aspirin